=== PATIENT | female | born 1950 | race Caucasian/White ===

== ENCOUNTER 2018-05-05 11:09 | Day surgery (SDC) | payer MEDICARE, OTHER ==
[2018-05-04 11:45] VITALS: BMI 23.3
[2018-05-05] MEDS ORDERED: Fentanyl 100 MCG/2 ML VIAL ONE ×2 (13:43)
[2018-05-05] MEDS ORDERED: Midazolam HCl 2 mg/2 ml Vial ONE (13:43)
[2018-05-05] MEDS ORDERED: Ondansetron PF 4 MG/2 ML Vial ONE (15:47)
[2018-05-05] MEDS ORDERED: PROPOFOL 200 MG/20 ML VIAL ONE (15:47)
--- NOTE | 2018-05-05 15:59 | MRI ---
MRI LUMBAR SPINE WITHOUT IV CONTRAST: Date: 05/05/18 HISTORY: 68-year-old female with M51.36 lumbar degenerative disc disease, right-sided back pain for a long renu e. FINDINGS: There are generalized disc desiccation changes, and ligament and facet hypertrophic changes. There is a right-sided adnexal cyst, 3.8 cm, incompletely visualized and characterized on this study. 1.2 cm diameter low signal focus within the gallbladder on T2 sequence, evidence for gallstone. Bilateral re nal T2 nodular foci, incompletely characterized. Comparison made to prior 04/11/18 CT without IV cont rast shows the gallstone and right pelvic cyst to be stable. Conus medullaris region is unremarkable, terminating at L2. T12-L1 level is unremarkable. At L1-L2, no canal or foraminal stenosis. There is some minimal Type I end plate changes. At L2-L3, there is no significant associated stenosis. At L3-L4, ligament and facet hypertrophic changes are more marked with some fluid within the facet kelly ints and mild lateral recess narrowing and mild bilateral foraminal stenosis, worse on the right side . At L4-L5, there is facet arthrosis with mild lateral recess stenosis and mild foraminal stenosis with left posterolateral annular fissure. L5-S1 level is unremarkable. IMPRESSION: Generalized disc desiccation changes, and ligament and facet hypertrophic changes, with mostly mild f oraminal stenosis. Other findings as above. POS: C
== END 2018-05-05 16:40 | disposition home or self-care (01) ==
LOC: SDC/OP 11:09
PROVIDERS: ATTEND Family Medicine
PROC: B03BZZZ Magnetic Resonance Imaging (MRI) of Spinal Cord (ICD-10-PCS; principal; 2018-05-05)
DX: M51.36 Other intervertebral disc degeneration, lumbar region (principal); M48.061 Spinal stenosis, lumbar region without neurogenic claudication; I10 Essential (primary) hypertension; F32.1 Major depressive disorder, single episode, moderate; M85.80 Other specified disorders of bone density and structure, unspecified site; Z79.891 Long term (current) use of opiate analgesic; Z79.899 Other long term (current) drug therapy
CPT/HCPCS: 72148; J2250; J2405; J2704; J3010

== ENCOUNTER 2018-07-07 01:26 | Outpatient (CLI) | payer MEDICARE, OTHER ==
[2018-07-07 12:48] LABS: #Basophils 0.1 thou/uL (0.0-0.2); #Eosinphils 0.2 thou/uL (0.0-0.7); #Lymphocytes 1.3 thou/uL (1.20-3.40); #Monocytes 0.4 thou/uL (0.11-0.59); #Neutrophils 3.5 thou/uL (1.40-6.50); %Basophils 1.3 % (0.0-1.0); %Lymphocytes 23.9 % (21.0-51.0); %Neutrophils 63.9 % (42.0-75.0); Hemoglobin 12.6 g/dL (12.0-16.0); Mean Corpuscular HGB CONC 32.8 g/dL (32.0-36.0); Mean Corpuscular Hemoglobin 32.9 pg (27.0-31.0); Platelet Count 225 thou/uL (130-400); Red Blood Cell (RBC) Count 3.82 mill/uL (4.20-5.40); White Blood Cell (WBC) Count 5.4 thou/uL (4.8-10.8)
[2018-07-07 13:10] LABS: ALT (SGPT) 8 U/L (8-55); AST (SGOT) 17 U/L (5-34); Alkaline Phosphatase 41 U/L (40-150); Anion Gap 10 mmol/L (10-20); BUN (Urea Nitrogen) 18 mg/dL (9.8-20.1); Bilirubin, Direct 0.3 mg/dL (0.1-0.3); Bilirubin, Total 0.8 mg/dL (0.2-1.2); Calc. Creatinine Clearance 0 mL/min (70-130); Carbon Dioxide 26 mmol/L (23-31); Chloride 106 mmol/L (98-107); Estimated GFR-MDRD 52; Glucose 84 mg/dL (80-115); Potassium 3.8 mmol/L (3.5-5.1); Protein, Total 6.7 g/dL (6.0-8.3); Sodium 138 mmol/L (136-145)
--- NOTE | 2018-07-07 17:09 | EKG ---
Test Reason : Blood Pressure : / mmHG Vent. Rate : 059 BPM Atrial Rate : 059 BPM P-R Int : 144 ms QRS Dur : 088 ms QT Int : 430 ms P-R-T Axes : 073 082 083 degrees QTc Int : 425 ms Sinus bradycardia Otherwise normal ECG No previous ECGs available Confirmed by SHUN SANTIZO ([id number]) on 07/07/2018 5:08:42 PM Referred By: ANTONINO Confirmed By:SHUN SANTIZO
== END 2018-07-07 01:27 | disposition home or self-care (01) ==
LOC: LABBT 01:26
PROVIDERS: ATTEND Student in an Organized Health Care Education/Training Program
DX: Z01.818 Encounter for other preprocedural examination (principal); K80.20 Calculus of gallbladder without cholecystitis without obstruction
CPT/HCPCS: 80048; 80076; 85025; 86850; 86900; 86901; 93005; 93010

== ENCOUNTER 2018-07-10 09:59 | Day surgery (SDC) | payer MEDICARE, OTHER ==
[2018-07-07 10:47] VITALS: BMI 22.9
[2018-07-10] MEDS ORDERED: Gabapentin 300 MG CAP ONE (10:58)
[2018-07-10] MEDS ORDERED: Famotidine/PF 20 mg/2ml Vial ONE ×2 (10:58→12:06)
[2018-07-10] MEDS ORDERED: CeleCOXIB 100 MG CAP ONE (10:58)
[2018-07-10] MEDS ORDERED: Scopolamine 1.5 mg/72 hour Patch ONE (10:58)
[2018-07-10] MEDS ORDERED: Bupivacaine HCl 0.5%/Epinephrine 1:200,000/PF 30 ml Vial ONE (11:57)
[2018-07-10] MEDS ORDERED: Fentanyl 100 MCG/2 ML VIAL ONE (12:06)
[2018-07-10] MEDS ORDERED: Rocuronium Bromide 10 MG/ML (10ML VIAL) ONE (13:53)
[2018-07-10] MEDS ORDERED: Ondansetron PF 4 MG/2 ML Vial ONE (13:53)
[2018-07-10] MEDS ORDERED: Glycopyrrolate 0.2 MG/ML 5 ML SYRINGE ONE (13:53)
[2018-07-10] MEDS ORDERED: PROPOFOL 200 MG/20 ML VIAL ONE (13:53)
[2018-07-10] MEDS ORDERED: Lidocaine 1% PF 5 ML VIAL ONE (13:53)
[2018-07-10] MEDS ORDERED: Dexamethasone 20 MG/5 ML VIAL ONE (13:53)
[2018-07-10] MEDS ORDERED: Meperidine HCl/PF 25 MG/ML VIAL ONE (14:07)
--- NOTE | 2018-07-10 16:15 | OP ---
DATE OF PROCEDURE: 07/10/2018 PREOPERATIVE DIAGNOSIS: Right ovarian mass. POSTOPERATIVE DIAGNOSIS: Right ovarian mass. PROCEDURES PERFORMED: 1. Laparoscopic bilateral salpingo-oophorectomy. 2. Pelvic washings. ANESTHESIA: General endotracheal. LOGISTICS/SHIPPER SURGEON: ELKE Mora. ESTIMATED BLOOD LOSS: 5 mL. IVF AND URINE OUTPUT: Pending as this was a joint case with General Surgery and they will dictate the final I and O. COMPLICATIONS: None. DRAINS: None. PATHOLOGY: Bilateral fallopian tubes and ovaries. FINDINGS: Approximately 5-cm right ovarian mass, smooth-appearing wall, did contain clear serous fluid after removal out of the abdomen. There was no spillage of the cellular material from the ovarian mass in the abdomen. The left ovary and fallopian tube were normal appearing. The uterus was normal appearing. There were no peritoneal implants or abnormalities. The ureters were visualized transperitoneally bilaterally during the oophorectomy. DESCRIPTION OF PROCEDURE: The patient was taken to the operating room, where general anesthesia was obtained difficulty. The patient was prepped and draped in a sterile fashion in a dorsal lithotomy position. A Ballesteros catheter was placed in the bladder. A speculum was placed in the vagina and a Hulka manipulator was attempted to be placed; however, that was difficult. I believe there was a internal stenosis at the internal os. Therefore, the speculum was removed and the sponge stick was placed in the vagina and the legs were placed in low lithotomy. Attention was turned to the abdomen. Marcaine 0.5% with epi was infiltrated into the umbilicus and a 10-mm skin incision was made in the umbilicus. The subcutaneous tissue was grasped with 2 Mary clamps, and this was dissected sharply with the Reynolds scissors down to the fascia, that was incised with Reynolds. The peritoneum was bluntly entered and the fascia was tacked at 3 and 9 o'clock with Maxon. The Olimpia was then placed into this incision. The trocar balloon was inflated and the Olimpia was positioned into place and the stay sutures were secured on both sides. The pneumoperitoneum was obtained. The 5-mm scope was then introduced into the abdomen. Trendelenburg was obtained. The left lower quadrant was infiltrated with 0.5% Marcaine with epi. A 5 mm skin incision was made and a 5 mm trocar was advanced into the abdomen under direct visualization. The same was performed in the right lower quadrant. Photo documentation was performed. Pelvic washings were then taken and sent for final cytology. The left fallopian tube was grasped and elevated. The ureter was noted to be running medial to the IP ligament and the IP ligament was clamped, cauterized, and transected with the LigaSure sequentially from the distal side to the proximal side and the meso-ovarian and the mesosalpinx were clamped, cauterized, and transected. Once the medial utero-ovarian was met, this was clamped perpendicularly, cauterized several times, and then transected, that removed completely the fallopian tube and ovary. This was placed into the anterior cul-de-sac. The right fallopian tube was then grasped and elevated, and again, the ureter was noted to be running posteriorly. The infundibulopelvic ligament was cauterized and transected with LigaSure followed by the meso-ovarium and then medially with the utero-ovarian clamp, cauterizing and transecting. Hemostasis was noted to be excellent. A 10-mm bag was then introduced into the abdomen and both ovaries and fallopian tubes were placed into the bag without difficulty. The bag was brought to to the Olimpia. The trocar was removed and the bag was easily delivered through the umbilical incision without any spillage of material into the abdomen. This was sent for final pathology. The Olimpia was then placed back into the umbilical incision and secured down once again. The sponge stick was removed out of the vagina and the cervix was visualized and noted to be hemostatic. At this point in the case, Dr. Lambert entered into the room to perform a laparoscopic cholecystectomy. Please see his dictation for details regarding that. Job ID: [id number]
--- NOTE | 2018-07-11 12:57 | OP ---
DATE OF PROCEDURE: 07/10/2018 PREOPERATIVE DIAGNOSIS: Gallstones. POSTOPERATIVE DIAGNOSIS: Gallstones. PROCEDURE PERFORMED: Laparoscopic cholecystectomy. ANESTHESIA: General. ESTIMATED BLOOD LOSS: Minimal. COMPLICATIONS: None. SPECIMENS: Gallbladder. FINDINGS: Chronic cholecystitis. PROCEDURE IN DETAIL: The patient was taken to the operating room and laid supine on the operating room table. After general anesthetic was obtained, the abdomen was prepped and draped in a sterile fashion. A curved incision was made below the umbilicus. Cautery was used to dissect down to the umbilical fascia. Umbilical fascia was incised and held up using a Mary. The abdominal cavity was entered using a Fernanda clamp. Holding stitch of Vicryl was placed on each side of the fascia. Fernandes trocar was placed. High-flow pneumoperitoneum was obtained. An upper midline 5 mm port and 2 right upper quadrant 5 mm ports were placed under direct camera visualization. The gallbladder was retracted from the gallbladder fossa. The peritoneum of the gallbladder was opened anteriorly and posteriorly. The critical view triangle was seen showing only the cystic duct and cystic artery branching from medial to lateral. There were no other branching structures. Two clips were placed proximally on the cystic duct and one laterally. It was cut using laparoscopic scissors. The cystic artery was taken in the same way. Electrocautery was then used to dissect the gallbladder out of the gallbladder fossa. The gallbladder was placed in an Endo catch bag and brought out through the Fernandes. There was no bleeding or bile in the liver bed. The cystic duct stump and cystic artery stump were intact, without evidence of extravasation or bleeding. All port sites were infiltrated using local anesthesia. All ports were removed under camera visualization. Pneumoperitoneum was let down. The Vicryl was used to close the fascial defect below the umbilicus. All incisions were irrigated and closed using 4-0 Monocryl and Dermabond. The patient was en route to Recovery in stable condition. All instrument counts, needle counts and lap counts were correct. Job ID: [id number]
== END 2018-07-10 15:53 | disposition home or self-care (01) ==
LOC: SDC 09:59
PROVIDERS: ATTEND Student in an Organized Health Care Education/Training Program
PROC: 0UT24ZZ Resection of Bilateral Ovaries, Percutaneous Endoscopic Approach (ICD-10-PCS; principal; 2018-07-10)
PROC: 0UT74ZZ Resection of Bilateral Fallopian Tubes, Percutaneous Endoscopic Approach (ICD-10-PCS; 2018-07-10)
PROC: 0FT44ZZ Resection of Gallbladder, Percutaneous Endoscopic Approach (ICD-10-PCS; 2018-07-10)
PROC: 0FT44ZZ Resection of Gallbladder, Percutaneous Endoscopic Approach (ICD-10-PCS; 2018-07-10)
DX: N83.201 Unspecified ovarian cyst, right side (principal); K80.10 Calculus of gallbladder with chronic cholecystitis without obstruction; I10 Essential (primary) hypertension; H35.30 Unspecified macular degeneration; Z79.899 Other long term (current) drug therapy; Z88.6 Allergy status to analgesic agent
CPT/HCPCS: 88112; 88304; 88307; J0131; J0670; J1100; J2001; J2175; J2405; J2704; J3010; S0028

== ENCOUNTER 2018-09-21 14:06 | Outpatient (CLI) | payer MEDICARE, OTHER ==
--- NOTE | 2018-09-21 15:08 | MMO ---
Bilateral MAMMO Bilat Diag [facility]. CLINICAL HISTORY: Patient is 68 years old and is seen for diagnostic exam. The patient has the following family history of breast cancer: maternal grandmother. The patient has no personal history of cancer. VIEWS: The views performed were: bilateral craniocaudal with tomosynthesis; bilateral mediolateral oblique with tomosynthesis; and bilateral mediolateral. FILMS COMPARED: The present examination has been compared to prior imaging studies performed at [facility] on 04/17/2013, 04/24/2014, 04/25/2015, 05/04/2016 and 09/21/2018. MAMMOGRAM FINDINGS: The breasts are heterogeneously dense, which could obscure a lesion on mammography. There are no suspicious masses, suspicious calcifications, or new areas of architectural distortion. There are no mammographic or sonographic abnormalities in the area of palpable concern. The patient is referred back to her clinician. Negative imaging findings should not preclude biopsy if clinical findings are suspicious. IMPRESSION: THERE ARE NO MAMMOGRAPHIC OR SONOGRAPHIC ABNORMALITIES IN THE AREA OF PALPABLE CONCERN. THE PATIENT IS REFERRED BACK TO HER CLINICIAN. NEGATIVE IMAGING FINDINGS SHOULD NOT PRECLUDE BIOPSY IF CLINICAL FINDINGS ARE SUSPICIOUS. THE RESULTS OF THIS EXAM WERE SENT TO THE PATIENT. ACR BI-RADS Category 1 - Negative MAMMOGRAPHY NOTE: 1. A negative mammogram report should not delay a biopsy if a dominant of clinically suspicious mass is present. 2. Approximately 10% to 15% of breast cancers are not detected by mammography. 3. Adenosis and dense breasts may obscure an underlying neoplasm.
--- NOTE | 2018-09-21 15:25 | ULT ---
LIMITED RIGHT BREAST ULTRASOUND: 09/21/2018 PROVIDED CLINICAL HISTORY: Right breast palpable abnormality. FINDINGS: Limited sonographic interrogation was performed of the right breast in the region of palpable concern . The sonographic appearance of the breast tissue in this region is normal. IMPRESSION: BI-RADS category 1-Negative. No sonographic or mammographic abnormalities are evident in the region of the patient's palpable abnormality. Negative imaging findings should not preclude further evaluat ion of a clinically suspicious area. The patient is referred back to her clinician. POS: OFF
== END 2018-09-21 14:07 | disposition home or self-care (01) ==
LOC: BICMAMMO 14:06
PROVIDERS: ATTEND Family Medicine
DX: R92.2 Inconclusive mammogram (principal); Z80.3 Family history of malignant neoplasm of breast
CPT/HCPCS: 76642; 77066; G0279

== ENCOUNTER 2020-06-16 11:11 | Outpatient (CLI) | payer MEDICARE, OTHER ==
--- NOTE | 2020-06-16 13:38 | MMO ---
Bilateral MAMMO Bilat Screen [facility]. CLINICAL HISTORY: Patient is 70 years old and is seen for screening. The patient has the following family history of breast cancer: maternal grandmother. The patient has no personal history of cancer. VIEWS: The views performed were: bilateral craniocaudal with tomosynthesis and bilateral mediolateral oblique with tomosynthesis. FILMS COMPARED: The present examination has been compared to prior imaging studies performed at [facility] on 04/25/2015, 05/04/2016 and 09/21/2018. This study has been interpreted with the assistance of computer-aided detection. MAMMOGRAM FINDINGS: The breasts are heterogeneously dense, which could obscure a lesion on mammography. There are no suspicious masses, suspicious calcifications, or new areas of architectural distortion. IMPRESSION: THERE IS NO MAMMOGRAPHIC EVIDENCE OF MALIGNANCY. A ROUTINE FOLLOW-UP MAMMOGRAM IN 1 YEAR IS RECOMMENDED. THE RESULTS OF THIS EXAM WERE SENT TO THE PATIENT. ACR BI-RADS Category 1 - Negative MAMMOGRAPHY NOTE: 1. A negative mammogram report should not delay a biopsy if a dominant of clinically suspicious mass is present. 2. Approximately 10% to 15% of breast cancers are not detected by mammography. 3. Adenosis and dense breasts may obscure an underlying neoplasm. Reported by: DIANNA KAISER MD Electonically Signed: [id number]
== END 2020-06-16 11:12 | disposition home or self-care (01) ==
LOC: BICMAMMO 11:11
PROVIDERS: ATTEND Family Medicine
DX: Z12.31 Encounter for screening mammogram for malignant neoplasm of breast (principal); Z80.3 Family history of malignant neoplasm of breast
CPT/HCPCS: 77063; 77067

== ENCOUNTER 2021-06-23 10:43 | Outpatient (CLI) | payer MEDICARE, OTHER | END 2021-06-23 10:44 | disposition home or self-care (01) | LOC: BICMAMMO 10:43 | PROVIDERS: ATTEND Family Medicine | DX: Z12.31 Encounter for screening mammogram for malignant neoplasm of breast (principal); Z80.3 Family history of malignant neoplasm of breast | CPT/HCPCS: 77063; 77067 ==

== ENCOUNTER 2023-07-12 12:39 | Outpatient (CLI) | payer MEDICARE, OTHER | END 2023-07-12 12:40 | disposition home or self-care (01) | LOC: BICMAMMO 12:39 | PROVIDERS: ATTEND Family Medicine | DX: Z12.31 Encounter for screening mammogram for malignant neoplasm of breast (principal); Z80.3 Family history of malignant neoplasm of breast | CPT/HCPCS: 77063; 77067 ==